=== PATIENT | female | born 1990 | race Caucasian/White ===

== ENCOUNTER → 2016-06-12 03:30 | Observation (INO) ==
--- NOTE | 2016-06-11 22:36 | OB/GYN Progress Note ---
Date of Encounter: 06/11/16 Time of Encounter: 22:35 - Assessment and Plan (1) 34 weeks gestation of Current Visit: Yes Status: Acute Receives care with Dr. Wolf (2) uterine contractions in third trimester, antepartum Current Visit: Yes Status: Acute Nondilated, observation. Hydration, urinalysis pending Subjective - Subjective Principal diagnosis: 34w6d low abd pain Interval history: 25-year-old G 2 P1001 at 34 weeks 6 days to labor and delivery due to lower abdominal discomfort. She thinks she can feel contractions about every 8 minutes. More in her back. She has been driving for about 2 hours from [place] and was at a dance competition all weekend. She reports a mucousy discharge and some pink that she was checked last week where she was told she was 1 cm and 60% by Dr. Wolf. She denies any loss of fluid or vaginal bleeding. She reports the fetus is active. She denies any headache, blurry vision or epigastric pain. She denies any urgency frequency or dysuria. She denies any hematuria. She has a history of a term for which she was socially induced. She denies any complications with this Antepartum ROS: new complaints, movement normal, contractions, no loss of fluid, no vaginal bleeding Objective - Vital Signs Vital Signs: Intake and Output 06/11/16 06/11/16 06/11/16 07:59 15:59 23:59 Other: Weight 72.5 kg Patient Weight 06/11/16 23:59 Weight 72.5 kg - Exam FHR: category 1 FHR comments: 140s baseline Abdomen: Present: soft, gravid. Absent: tenderness Uterus: Absent: tenderness Cervical dilation: CL/50/-1 Cervix effacement: 50 station: -1 - Allied health notes Allied health notes reviewed: nursing
[2016-06-11 22:55] LABS: Bilirubin,Urine Negative (Negative); Blood,Urine Negative (Negative); Clarity,Urine Cloudy (Clear); Color,Urine Yellow (Yellow); Glucose,Urine (UA) Normal (Normal); Ketones,Urine Negative (Negative); Leukocyte Esterase,Urine Negative (Negative); Nitrite,Urine Negative (Negative); Protein,Urine Negative (Neg-Trace); Specific Gravity,Urine 1.012 (1.010-1.025); Urobilinogen,Urine Normal (Normal)
[2016-06-11 22:57] LABS: Bacteria,Urine None Seen per hpf (None-Few); Hyaline Casts,Urine None Seen per lpf (None-Few); RBC,Urine 0-3 per hpf (0-3); Squamous Epithelial Cell,Urine Many per lpf (None-Few); WBC,Urine 0-3 per hpf (0-3)
[~2016-06-12 03:30] MED LIST: *HR* Morphine 10 MG/ML VIAL ONE; *HR* Morphine 10 MG/ML VIAL SQ ONE; *HR* Morphine 2 MG/ML SYRINGE SQ ONE; Ondansetron 4 MG/2 ML VIAL ONE; Ondansetron ODT 4 MG TAB.RAPDIS SL ONE
== END | disposition home or self-care (01) ==
LOC: 1NENULAB
PROVIDERS: ADMIT Obstetrics & Gynecology; ATTEND Obstetrics & Gynecology

== ENCOUNTER → 2016-06-21 15:58 | Observation (INO) ==
--- NOTE | 2016-06-21 13:23 | OB/GYN Progress Note ---
Date of Encounter: 06/21/16 Time of Encounter: 13:18 - Assessment and Plan (1) Uterine contractions during Current Visit: Yes Status: Acute Cervix remains 1 cm long consistent with exam from office yesterday. Will monitor patient for next 2 hours and reevaluate for cervical change Regular diet if desired If no cervical change will discharge home (2) 36 weeks gestation of Current Visit: Yes Status: Acute Subjective - Subjective Interval history: at 36+ 2 reports contractions increased back pain and increased vaginal pressure since 11:30 PM last night patient states she was able to sleep during the night but pain was off and on. Patient states pain has increased a little bit and then more consistent this morning. Was last seen in office by Dr. Wolf yesterday here for evaluation of labor. Patient denies leaking of fluid or vaginal bleeding. Patient endorses good movement. Antepartum ROS: new complaints, movement normal, contractions, no loss of fluid, no vaginal bleeding Objective - Vital Signs Vital Signs: Intake and Output 06/20/16 06/21/16 06/21/16 23:59 07:59 15:59 Other: Weight 76.6 kg Patient Weight 06/21/16 23:59 Weight 76.6 kg - Exam FHR: auscultation normal, category 1 Auscultation: bilateral: normal Abdomen: Present: normal appearance, soft, gravid Uterus: Present: normal Cervical dilation: 1 Cervix effacement: 25 station: -3
[2016-06-21 14:09] LABS: Bilirubin,Urine Negative (Negative); Blood,Urine Negative (Negative); Clarity,Urine Cloudy (Clear); Color,Urine Yellow (Yellow); Glucose,Urine (UA) Normal (Normal); Ketones,Urine 80 mg/dL (Negative); Leukocyte Esterase,Urine Negative (Negative); Nitrite,Urine Negative (Negative); PH,Urine 6.5 pH Units (5.0-8.0); Protein,Urine Negative (Neg-Trace); Specific Gravity,Urine 1.016 (1.010-1.025); Urobilinogen,Urine Normal (Normal)
[2016-06-21 14:13] LABS: Bacteria,Urine Few per hpf (None-Few); Hyaline Casts,Urine None Seen per lpf (None-Few); RBC,Urine 0-3 per hpf (0-3); Squamous Epithelial Cell,Urine Many per lpf (None-Few); WBC,Urine 0-3 per hpf (0-3)
[2016-06-21 14:45] LABS: Amorphous Sediment,Urine Few (Few); Mucus,Urine Moderate (Few)
== END | disposition home or self-care (01) ==
LOC: 1NENULAB
PROVIDERS: ADMIT Advanced Practice Midwife; ATTEND Obstetrics & Gynecology

== ENCOUNTER → 2016-07-04 14:50 | Observation (INO) ==
--- NOTE | 2016-07-04 12:28 | OB/GYN Progress Note ---
Date of Encounter: 07/04/16 Time of Encounter: 12:26 - Assessment and Plan (1) False labor after 37 completed weeks of gestation Current Visit: Yes Status: Acute Pt has been monitored for the last 4 hours with minimal cervical change. 2- 2.5cm. Pt not in labor.Discharged to home. Discussed with Dr. Espinoza. He will see patient in office on Sunday at 845am. Discussed with patient and family. Verbalized understanding. Subjective - Subjective Interval history: pt sent over from MD office for labor eval. Pt states contractions started at 0300 and have been about every 6-[address] espinoza states had cervical change from last in office exam 1 week ago. Pt states good movement, denies leaking of fluid or vaginal bleeding. Pt placed on monitor with occasional contractions noted.After 2 hours patient stated contractions are more intense. . Antepartum ROS: movement normal, contractions, no loss of fluid, no vaginal bleeding Objective - Vital Signs Vital Signs: Intake and Output 07/03/16 07/04/16 07/04/16 23:59 07:59 15:59 Other: Weight 77 kg Patient Weight 07/04/16 23:59 Weight 77 kg - Exam FHR: category 1 Auscultation: bilateral: normal Abdomen: Present: normal appearance, soft, gravid Cervical dilation: 2 Cervix effacement: 60 station: -3
== END | disposition home or self-care (01) ==
LOC: 1NENULAB
PROVIDERS: ADMIT Advanced Practice Midwife; ATTEND Obstetrics & Gynecology

== ENCOUNTER 2016-07-13 08:00 | Inpatient (IN) ==
[2016-07-13] MEDS ORDERED: Ondansetron 4 MG/2 ML VIAL IVP PRN (08:29)
[2016-07-13] MEDS ORDERED: Naloxone 0.4 MG/ML INJ IVP PRN (08:29)
[2016-07-13] MEDS ORDERED: Famotidine 20 MG/2 ML VIAL IVP PRN (08:29)
[2016-07-13] MEDS ORDERED: D5% in Lactated Ringers 1,000 ML IVC SCH (08:30)
[2016-07-13] MEDS ORDERED: miSOPROStol 100 MCG TABLET PO SCH (08:40)
[2016-07-13 08:49] LABS: Basophils % 0.4 %; Eosinophils # 0.1 K/mcL (0.0-0.6); Eosinophils % 1.2 %; Hematocrit 38.5 % (35.3-44.9); Immature Granulocytes % 0.4 % (0-4); Immature Platelets 6.9 % (1.1-6.1); Lymphocytes # 1.7 K/mcL (0.6-4.6); Lymphocytes % 14.9 %; Mean Corpuscular HGB Conc 33.8 g/dL (31.6-35.5); Mean Corpuscular Hemoglobin 29.5 pg (28.0-33.3); Mean Corpuscular Volume 87.5 fL (83.0-100.0); Mean Platelet Volume 10.6 fL (9.4-12.4); Monocytes # 0.8 K/mcL (0.0-1.3); Monocytes % 6.8 %; Neutrophils # 8.7 K/mcL (1.6-8.9); Platelet Count 206 K/mcL (140-400); Red Cell Distribution Width 12.4 % (11.5-14.5); Segmented Neutrophils % 76.3 %
[2016-07-13 09:08] LABS: Alanine Aminotransferase 6 Units/L (0-55); Aspartate Amino Transferase 9 Units/L (5-34); BUN/Creatinine Ratio 12 (6-26); Blood Urea Nitrogen 7 mg/dL (7-20); Lactate Dehydrogenase 141 Units/L (159-327); Uric Acid 2.4 mg/dL (2.6-6.0); eGFR For African Americans > 60 (> 60); eGFR For Non-African Americans > 60 (> 60)
[2016-07-13] MEDS: D5% in 0.45% NACL 1,000 ML IVC SCH ×2 (09:44→16:19)
--- NOTE | 2016-07-13 11:00 | OB/GYN History & Physical ---
Date of Encounter: 07/13/16 Time of Encounter: 10:57 Assessment and Plan (1) 39 weeks gestation of Current visit: Yes Status: Acute (2) Elective induction of labor planned Current visit: Yes Status: Acute Induction of labor with Cytotec, possible Moser placement and AROM Nubain and epidural if desired Regular diet until Pitocin Anticipate History of Present Illness Chief complaint: Here for elective induction of labor HPI: Ms. Boss is a 25 year old female at 39+3 weeks gestation resents to triage for elective induction of labor. Patient reports good movement and occasional contractions, patient denies vaginal bleeding or leaking of fluid. Patient state uncomplicated. Labs: A+, GBS negative, rubella immune, all other serologies negative Past Med Surg Social Fam HX - Past Medical History Source: patient Medical history: no medical history Psychiatric history: no psych history - Social History Smoking Status: Former smoker Smokeless Tobacco Status: No Alcohol use: none Drug use: none - Family History Mother Living Status: Still Living Hx Family Cardiac Disorders: No Hx Family Respiratory Disorders: No Hx Family Cancer: No Hx Family GI Disorders: No Hx Family Genitourinary Disorders: No Hx Family Endocrine Disorder: No Hx Family Musculoskeletal Disorders: No Hx Family Neuromuscular Disorders: No Hx Family Neurologic Disorders: No Hx Family HEENT Disorders: No Hx Family Autoimmune Disorders: No Hx Family Reproductive Disorders: No Hx Family Psychosocial Disorders: No Hx Family Medical Disorders: No Obstetrical History - Pregnancies : 2 Para: 1 Term: 1 : 0 Ab's: 0 Livin Medications and Allergies Daily Combo Pack 1 tab PO DAILY 04/02/16 [History] Allergies No Known Allergies Allergy (Verified 07/13/16 09:06) Review of System OB All systems PM: reviewed and no additional remarkable complaints except as stated Exam - Vital Signs Vital signs: Initial Vital Signs Temp Pulse Resp BP 98.1 F 81 20 151/95 07/13/16 08:56 07/13/16 08:56 07/13/16 08:56 07/13/16 08:56 - Constitutional Constitutional: well developed, well nourished, no acute distress, average body habitus - Neck Neck exam: full ROM - Lungs Respiratory exam: CTAB - Cardiovascular Cardiovascular exam: RRR, +S1, +S2 - Breasts Breast: bilateral: normal - Abdomen Abdomen: Present: bowel sounds normal, gravid, non tender - Extremities Extremities exam: normal capillary refill, normal inspection Deep Tendon Reflex Grade: 2+ Normal - Uterus Uterus exam: Present: normal size (EFW 7#), normal contour Results Result Diagrams: 07/13/16 08:37 07/13/16 08:37 Abnormal lab results WBC 11.3 K/mcL (4.3-11.1) H 07/13/16 08:37 Immature Plt Fraction 6.9 % (1.1-6.1) H 07/13/16 08:37 Uric Acid 2.4 mg/dL (2.6-6.0) L 07/13/16 08:37 Lactate Dehydrogenase 141 Units/L (159-327) L 07/13/16 08:37 All other labs normal. - VTE Reasons for not Prescribing Prophylaxis: Treatment not Indicated - Low risk for VTE
--- NOTE | 2016-07-13 12:59 | OB/GYN Progress Note ---
Date of Encounter: 07/13/16 Time of Encounter: 12:58 - Assessment and Plan (1) 39 weeks gestation of Current Visit: Yes Status: Acute Requests epidural . (2) Elective induction of labor planned Current Visit: Yes Status: Acute Subjective - Subjective Antepartum ROS: movement normal, contractions Objective - Vital Signs Vital Signs: Vital Signs Temp Pulse Resp BP 07/13/16 08:56 98.1 F 81 20 151/95 Intake and Output 07/12/16 07/13/16 07/13/16 23:59 07:59 15:59 Other: Weight 78.7 kg Patient Weight 07/13/16 23:59 Weight 78.7 kg - Exam FHR: category 1 Cervical dilation: 4 Cervix effacement: 60 station: -1 - Labs Labs: Abnormal lab results WBC 11.3 K/mcL (4.3-11.1) H 07/13/16 08:37 Immature Plt Fraction 6.9 % (1.1-6.1) H 07/13/16 08:37 Uric Acid 2.4 mg/dL (2.6-6.0) L 07/13/16 08:37 Lactate Dehydrogenase 141 Units/L (159-327) L 07/13/16 08:37
[2016-07-13] MEDS ORDERED: Epidural Premix (fent/bupiv) 110 ML EP SCH (13:00)
[2016-07-13] MEDS ORDERED: Epidural Premix (fent/bupiv) 110 ML EP ONE (13:01)
[2016-07-13] MEDS ORDERED: Ringers Solution, Lactated 1,000 ML ONE (13:02)
[2016-07-13] MEDS ORDERED: Oxytocin 20 units/ LR 1000 mL 20 UNIT/1,000 ML BAG IVC SCH ×2 (13:45→19:55)
--- NOTE | 2016-07-13 14:00 | Anesthesia Evaluation PreOp ---
Date of Encounter: 07/13/16 Time of Encounter: 13:59 - Past History Planned Operation: CHAO Cardiac History: Denies any Significant Hx Pulmonary History: Denies Any Significant HX LAST MODEL MAKER History: Denies Any Significant HX Other Medical History: Denies Any Significant HX Anesthesia History: No Prior Anesthetic Complications, Past Anesthesia : Yes (39.3) Alcohol Use: none Drug use: none Medications and Allergies Daily Combo Pack 1 tab PO DAILY 04/02/16 [History] Allergies No Known Allergies Allergy (Verified 07/13/16 09:06) - Meds/Allergy Pre-op Review Medications Reviewed: Yes Allergies Reviewed: Yes Beta Blockers on Current Med List: No Anesthesia Results - Labs 07/13/16 08:37 07/13/16 08:37 Anesthesia Exam Height: 5.6 Weight: 78kg NPO (# of Hours): 8 Pain Scale: 6 Pain Scale Used: Numeric (1 - 10) - HEENT Pupil (Motor): Pupils equal Mallampati: II Teeth: Normal Oral Opening: Greater than 3 - LAST MODEL MAKER LOC: Oriented LAST MODEL MAKER Motor: Normal RUE, Normal LUE, Normal RLE, Normal LLE, Normal Face LAST MODEL MAKER Sensory: Normal: RUE, LUE, RLE, LLE, Face - Cardiac Rhythm: Regular Murmur: None JVD: No Carotid Bruit: No - Pulmonary Breath Sounds: bilateral Clear Respiratory Effort: Symmetrical Anesthesia Assess/Plan ASA Score: 2 Modified [place] Scale for Level of Consciousness: Cooperative, oriented, and tranquil Anesthetic Plan: General (plan b), Regional (plan a) Autologous Blood: Yes Monitoring Plan: Standard Monitors
--- NOTE | 2016-07-13 14:02 | Anesthesia Procedures ---
Date of Encounter: 07/13/16 Time of Encounter: 14:00 Procedures: Anesthesia - Epidural/Spinal Patient ID/Chart reviewed: Yes Patient examined: Yes OB Eval: Gestational age: 39.3 OB Eval: : 2 OB Eval: Hx Para: 1 OB Eval: Dilated at (cm): 4 OB Eval: Contractions: Non-stressed pattern Consent Obtained: Yes Supplemental Oxygen: None/Room Air Site Prep: Aseptic Technique, Sterile prep and drape, Povidone-Iodine 1% Patient position: upright Local Anesthetic: Lidocaine 1% Amount of Local Anesthetic used: 3 Touhy Needle Gauge: 18 Touhy Needle Depth (cm): 7 Catheter Depth at Skin (cm): 15 Test Dose (1.5% Lido + Epi): Volume given (mls): 5 Test Dose Result: Negative Loading Dose: Other: 8ml of pharm bag premix solution Loading Dose Administered: Thru Catheter Infusion Med: 0.125% Bupivacaine w/ 2 mcg/ml Fentanyl Infusion Rate (mls/hr): 15 ([id number]) Catheter Secured in Place: Tegaderm, Tape Interspace Used: L3-L4 Loss of Resistance (MAE): Yes Blood: No CSF: No Paresthesia: No Procedure: pt tolerated procedure well. no complications. vss. fhr stable. [pump started at 1348 137/83 hr 78 144/85 hr 85 fhr 155
--- NOTE | 2016-07-13 14:31 | OB Labor Progress Note ---
Date of Encounter: 07/13/16 Time of Encounter: 14:29 Labor Progress Note - Subjective Subjective: Pt resting comfortable in bed at this time. - Cervix Cervix: 4/80/-1 - Heart Tones Heart Tones: 130/moderate/accels/no decels - Interventions Interventions: AROM/ thick meconium - Plan Plan: start pitocin per policy. Anticipate
--- NOTE | 2016-07-13 18:25 | OB/GYN Procedure Note ---
Delivery - Delivery Date: 07/13/16 Provider: Milo Wolf (juan c) Intrapartum events: none Delivery induction: misoprostol Delivery augmentation: rupture of membranes, pitocin Delivery monitor: external FHT, external uterine Anesthesia: epidural Estimated Blood Loss: 200 - (s) A Infant Delivery Date: 07/13/16 Infant Delivery Time: 18:07 Presentation: vertex Position: OA Route of delivery: Gender: Female Viability: Viable Pounds: 7 Ounces: 6 at 1 minute: 8 at 5 mins: 9 Shoulder Dystocia: not encountered Placenta: spontaneous Cord: delivered through nuchal - Repair Episiotomy: none Laceration Description: None - Complications Delivery complications: none Delivery comments: Patient delivered spontaneously over an intact perineum from occiput anterior position a live female weighing 7 lbs. 6 oz. with Apgars of 8 and 9. Blood loss was 200 mL. Delivery time was 1807. Placenta delivered spontaneously at 1812.
[2016-07-13] MEDS ORDERED: Benzocaine/Menthol 56 GM AEROSOL SPRAY TP PRN (19:55)
[2016-07-13] MEDS ORDERED: Lanolin 28 GM TUBE TP PRN (19:55)
[2016-07-13] MEDS ORDERED: Acetaminophen 325 MG TABLET PO PRN (19:55)
[2016-07-13] MEDS ORDERED: Ibuprofen 600 MG TABLET PO PRN (19:55)
[2016-07-14] MEDS ORDERED: Prenatal Vit/FA 1 EACH TABLET PO SCH (09:00)
[2016-07-14 09:08] VITALS: BP 114/73
--- NOTE | 2016-07-14 09:58 | Discharge Summary ---
Date of Encounter: 07/14/16 Time of Encounter: 09:56 - Discharge Diagnosis (1) Vaginal delivery Priority: Primary Status: Acute Comments: Pt meeting milestones. (2) Mother currently breast-feeding Priority: Secondary Status: Acute - Discharge Medications Prescriptions: Ibuprofen [Motrin] 600 mg PO Q6HR PRN #60 tablet PRN Reason: Cramping Docusate [Colace] 100 mg PO BID #60 capsule Home Medications: Daily Combo Pack 1 tab PO DAILY 04/02/16 [History] Benzocaine/Menthol [place] [Dermoplast [place]] 1 appl TP QID PRN #0 aerosol [Rx] Breast Pump [BREAST PUMP] 1 each .ROUTE AD #1 each 07/14/16 [Rx] Docusate [Colace] 100 mg PO BID #60 capsule 07/14/16 [Rx] Ibuprofen [Motrin] 600 mg PO Q6HR PRN #60 tablet 07/14/16 [Rx] Lanolin 1 appl TP QID PRN #0 tube 07/14/16 [Rx] Allergies/Adverse Reactions: Allergies No Known Allergies Allergy (Verified 07/13/16 09:06) Data Procedures and tests throughout hospitalization: Laboratory Tests 07/13/16 07/13/16 08:37 08:37 WBC 11.3 H RBC 4.40 Hgb 13.0 Hct 38.5 MCV 87.5 MCH 29.5 MCHC 33.8 RDW 12.4 Plt Count 206 MPV 10.6 Immature Gran % 0.4 Seg Neutrophils % 76.3 Lymphocytes % 14.9 Monocytes % 6.8 Eosinophils % 1.2 Basophils % 0.4 Neutrophils # 8.7 Lymphocytes # 1.7 Monocytes # 0.8 Eosinophils # 0.1 Basophils # 0.0 Immature Plt Fraction 6.9 H BUN 7 Creatinine 0.58 Est GFR ( Amer) > 60 Est GFR (Non-Af Amer) > 60 BUN/Creatinine Ratio 12 Uric Acid 2.4 L AST 9 ALT 6 Lactate Dehydrogenase 141 L Date of admission: 07/13/16 08:09 Primary care physician: PCP NO Consults: 07/13/16 19:55 Consult to Carpenter Assistant [CONS] Routine Comment: Vaginal delivery, consult needed Discharging clinician: Bhumi Lamb Anticipated date of discharge: 07/14/16 - Patient Status Disposition: Home, Self-Care Condition: Good Functional capacity at discharge: independent ambulation Overall status at discharge: patient is progressing back to baseline - Discharge Instructions Follow Up With: NO,PCP [Primary Care Provider] - Milo Wolf MD [Partnered Physician] - - Diet and Activity Activity: increase activity as tolerated Diet: regular diet Hospital Course Reason for admission: induction of labor Delivery: Episiotomy: none Laceration: none Other procedures: none complications: none Discharge diagnosis: IUP at term delivered baby: female Hospital course: - Delivery Date: 07/13/16 Provider: Milo Wolfley) Intrapartum events: none Delivery induction: misoprostol Delivery augmentation: rupture of membranes, pitocin Delivery monitor: external FHT, external uterine Anesthesia: epidural Estimated Blood Loss: 200 - Infant (s) A Delivery Date: 07/13/16 Infant Delivery Time: 18:07 Presentation: vertex Position: OA Route of delivery: Gender: Female Viability: Viable Pounds: 7 Ounces: 6 at 1 minute: 8 at 5 mins: 9 Shoulder Dystocia: not encountered Placenta: spontaneous Cord: delivered through nuchal - Repair Episiotomy: none Laceration Description: None - Complications Delivery complications: none Time Attestation: Total time spent providing and/or coordinating discharge services: Time Spent: Less than 30 minutes Exam - Constitutional Vitals: Temp Pulse Resp BP Pulse Ox 98.0 F 76 16 114/73 97 07/14/16 08:05 07/14/16 08:05 07/14/16 08:05 07/14/16 08:05 07/14/16 08:05 General appearance IM: A&O X 3, pleasant, no acute distress - Respiratory Respiratory exam: Present: CTAB - Cardiovascular Cardiovascular exam IM: Present: RRR, +S1, +S2 - GI/Abdominal GI/Abdominal exam IM: soft - Rectal Rectal exam: deferred - Uterine Tone: Firm Uterus Position: 1 Finger Below Umbilicus - Extremities Exam Extremities exam IM: Present: normal inspection - Neurological Exam Neurological exam: normal gait, oriented X3 - Psychiatric Additional comments: reports good mood
== END 2016-07-14 20:00 | disposition home or self-care (01) | DRG 560 ==
LOC: 1NENULAB 08:09 → 1NENUOBS 21:07
PROVIDERS: ADMIT Obstetrics & Gynecology; ATTEND Obstetrics & Gynecology

== ENCOUNTER → 2017-11-27 15:32 | Observation (INO) ==
[2017-11-27 12:59] LABS: Bilirubin,Urine Negative (Negative); Blood,Urine Negative (Negative); Color,Urine Yellow (Yellow); Glucose,Urine (UA) Normal (Normal); Ketones,Urine Negative (Negative); Leukocyte Esterase,Urine Trace (Negative); Nitrite,Urine Negative (Negative); PH,Urine 7.5 pH Units (5.0-8.0); Protein,Urine Negative (Neg-Trace); Specific Gravity,Urine 1.009 (1.010-1.025); Urobilinogen,Urine Normal (Normal)
[2017-11-27 13:03] LABS: Bacteria,Urine Moderate per hpf (None-Few); Hyaline Casts,Urine Few per lpf (None-Few); Squamous Epithelial Cell,Urine Many per lpf (None-Few); WBC,Urine 0-3 per hpf (0-3)
[2017-11-27 13:09] LABS: Clarity,Urine Slightly Hazy (Clear)
[2017-11-27 13:23] LABS: Amphetamine Screen,Urine Negative ng/mL (Cutoff=1000); Barbiturate Screen,Urine Negative ng/mL (Cutoff=200); Benzodiazepines Screen,Urine Negative ng/mL (Cutoff=200); Cannabinoid Screen,Urine Negative ng/mL (Cutoff = 50); Cocaine Screen,Urine Negative ng/mL (Cutoff= 300); Opiate Screen,Urine Negative ng/mL (Cutoff=300); Phencyclidine Screen,Urine Negative ng/mL (Cutoff=25)
--- NOTE | 2017-11-27 15:30 | OB/GYN Progress Note ---
Date of Encounter: 11/27/17 Time of Encounter: 15:23 - Assessment and Plan (1) 36 weeks gestation of Current Visit: No Status: Acute (2) uterine contractions in third trimester, antepartum Current Visit: No Status: Acute Patient ambulated for ~3 hours, contractions irregular, without change in dilation or effacement. Discharge home with precautions. Subjective - Subjective Interval history: 27 year-old presenting at 36w2d from office with c/o contractions. She denies LOF or VB. Good FM. No other complaints. Antepartum ROS: movement normal, contractions, no loss of fluid, no vaginal bleeding Objective - Vital Signs Vital Signs: Intake and Output 11/26/17 11/27/17 11/27/17 23:59 07:59 15:59 Other: Weight 78.3 kg Patient Weight 11/27/17 23:59 Weight 78.3 kg - Exam FHR: category 1 FHR comments: FHR 130, reactive Auscultation: bilateral: normal Abdomen: Present: normal appearance, soft, gravid Uterus: Present: normal. Absent: tenderness Cervical dilation: 2 Cervix effacement: 80% station: -2 - Labs Labs: Abnormal lab results Ur Specific [place] 1.009 (1.010-1.025) L 11/27/17 12:25 Ur Leukocyte Esterase Trace (Negative) H 11/27/17 12:25 Urine Microscopic RBC 3-5 per hpf (0-3) H 11/27/17 12:25 Ur Squamous Epith Cells Many per lpf (None-Few) H 11/27/17 12:25 Urine Bacteria Moderate per hpf (None-Few) H 11/27/17 12:25 Ur Culture Indicated? NO. (NO) A 11/27/17 12:25
== END | disposition home or self-care (01) ==
LOC: 1NENULAB
PROVIDERS: ADMIT Registered Nurse; ATTEND Registered Nurse

== ENCOUNTER 2017-12-15 17:29 | Inpatient (IN) ==
[~2017-12-15 17:29] MED LIST changes: -*HR* Morphine 10 MG/ML VIAL ONE; -*HR* Morphine 10 MG/ML VIAL SQ ONE; -*HR* Morphine 2 MG/ML SYRINGE SQ ONE; +*HR* Nalbuphine 10 MG/ML AMPUL IVP PRN; +Famotidine 20 MG/2 ML VIAL IVP PRN; +Metoclopramide 10 MG/2 ML VIAL IVP PRN; +Naloxone 0.4 MG/ML INJ IVP PRN; +Ondansetron 4 MG/2 ML VIAL IVP PRN; -Ondansetron 4 MG/2 ML VIAL ONE; -Ondansetron ODT 4 MG TAB.RAPDIS SL ONE; +Ringers Solution, Lactated 1,000 ML IVC SCH; +Ringers Solution, Lactated 1,000 ML ONE
[2017-12-15 17:43] LABS: Basophils % 0.3 %; Eosinophils # 0.1 K/mcL (0.0-0.6); Eosinophils % 0.8 %; Hematocrit 38.6 % (35.3-44.9); Hemoglobin 12.7 g/dL (11.5-15.4); Immature Granulocytes % 0.5 % (0-4); Lymphocytes # 1.8 K/mcL (0.6-4.6); Lymphocytes % 16.7 %; Mean Corpuscular HGB Conc 32.9 g/dL (31.6-35.5); Mean Corpuscular Hemoglobin 29.1 pg (28.0-33.3); Mean Corpuscular Volume 88.5 fL (83.0-100.0); Mean Platelet Volume 10.7 fL (9.4-12.4); Monocytes # 0.6 K/mcL (0.0-1.3); Monocytes % 5.5 %; Platelet Count 196 K/mcL (140-400); Red Blood Count 4.36 M/mcL (3.82-4.97); Red Cell Distribution Width 12.7 % (11.5-14.5); Segmented Neutrophils % 76.2 %
[2017-12-15 17:54] LABS: Protein/Creatinine Ratio,Urine 0.36 mg/mg (0.00-0.20)
[2017-12-15 17:55] LABS: Amphetamine Screen,Urine Negative ng/mL (Cutoff=1000); Barbiturate Screen,Urine Negative ng/mL (Cutoff=200); Benzodiazepines Screen,Urine Negative ng/mL (Cutoff=200); Cannabinoid Screen,Urine Negative ng/mL (Cutoff = 50); Cocaine Screen,Urine Negative ng/mL (Cutoff= 300); Opiate Screen,Urine Negative ng/mL (Cutoff=300); Phencyclidine Screen,Urine Negative ng/mL (Cutoff=25)
[2017-12-15 18:01] LABS: Alanine Aminotransferase 7 Units/L (7-52); Aspartate Amino Transferase 10 Units/L (13-39); BUN/Creatinine Ratio 30 (6-26); Blood Urea Nitrogen 12 mg/dL (6-20); Lactate Dehydrogenase 142 Units/L (140-271); eGFR For Non-African Americans > 60 (> 60)
--- NOTE | 2017-12-15 18:26 | OB/GYN History & Physical ---
Date of Encounter: 12/15/17 Time of Encounter: 18:24 Assessment and Plan (1) 38 weeks gestation of Current visit: Yes Status: Acute (2) SROM (spontaneous rupture of membranes) Current visit: Yes Status: Acute Admit to labor and delivery Nubain and epidural as desired Draw PIH labs due to elevated blood pressures Draw hepatitis B GBS negative Anticipate History of Present Illness Chief complaint: SROM HPI: Ms. Underwood is a 27 year old female 38+6 weeks gestation presents to triage with complaints of rupture at 1550 this evening, and now occasional contractions. Reports good movement, denies vaginal bleeding. Denies headache, visual changes, right upper quadrant pain. Uncomplicated course with care with Dr. Wolf Labs: A+, rubella immune, GBS negative, all other serologies negative, awaiting hepatitis B results. 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 - Social History Smoking Status: Former smoker Smokeless Tobacco Status: No Alcohol use: none Drug use: none - Family History Mother Living Status: Still Living Hx Family Cardiac Disorders: No Hx Family Respiratory Disorders: No Hx Family Cancer: No Hx Family GI Disorders: No Hx Family Genitourinary Disorders: No Hx Family Endocrine Disorder: No Hx Family Neuromuscular Disorders: No Hx Family Neurologic Disorders: No Hx Family HEENT Disorders: No Hx Family Autoimmune Disorders: No Hx Family Reproductive Disorders: Yes (endometriosis) Hx Family Psychosocial Disorders: No Hx Family Medical Disorders: Yes (jeff) Obstetrical History - Pregnancies : 3 Para: 2 Term: 2 : 0 Ab's: 0 Livin Medications and Allergies Daily Combo Pack 1 tab PO DAILY 04/02/16 [History] 3 Allergy/AdvReac Type Severity Reaction Status Date / Time No Known Allergies Allergy Verified 07/13/16 09:06 Exam - Constitutional Constitutional: well developed, well nourished, no acute distress, average body habitus - Neck Neck exam: full ROM - Lungs Respiratory exam: CTAB - Cardiovascular Cardiovascular exam: RRR - Abdomen Abdomen: Present: gravid, non tender - Extremities Extremities exam: normal capillary refill, normal inspection - Cervix Dilation: 3 (per RN) Effacement: 70 Station: -2 Results Result Diagrams: 10/06/18 17:15 12/15/17 17:28 Abnormal lab results Creatinine 0.40 mg/dL (0.60-1.20) L 12/15/17 17:28 BUN/Creatinine Ratio 30 (6-26) H 12/15/17 17:28 AST 10 Units/L (13-39) L 12/15/17 17:28 Protein/Creatinin Ratio 0.36 mg/mg (0.00-0.20) H 12/15/17 17:20 Urine Total Protein 25 mg/dL (1-14) H 12/15/17 17:20 All other labs normal. - VTE Reasons for not Prescribing Prophylaxis: Treatment not Indicated - Low risk for VTE
[2017-12-15] MEDS ORDERED: Ondansetron 4 MG/2 ML VIAL IVP PRN (18:27)
[2017-12-15] MEDS ORDERED: *HR* FentaNYL (PF) 100 MCG/2 ML VIAL EP ONE (18:27)
[2017-12-15] MEDS ORDERED: Bupivacaine-MPF 0.25% 10 ML VIAL EP ONE (18:27)
[2017-12-15] MEDS ORDERED: Naloxone 0.4 MG/ML INJ IVP PRN (18:27)
[2017-12-15] MEDS ORDERED: *HR* Ropivacaine/PF 0.2% 20 ML VIAL EP ONE (18:27)
[2017-12-15] MEDS ORDERED: EPHEDrine 50 MG/ML VIAL IVP PRN (18:27)
[2017-12-15] MEDS ORDERED: Epidural Premix (fent/bupiv) 110 ML EP SCH (18:30)
--- NOTE | 2017-12-15 18:30 | Anesthesia Evaluation PreOp ---
Date of Encounter: 12/15/17 Time of Encounter: 18:25 - Past History Planned Operation: CHAO Cardiac History: Denies any Significant Hx Pulmonary History: Denies Any Significant HX SUPPLY CHAIN LOGISTICS MANAGER History: Denies Any Significant HX Other Medical History: Denies Any Significant HX Anesthesia History: No Prior Anesthetic Complications, Past Anesthesia (Tumor left wrist removal) : Yes Alcohol Use: none Drug use: none Medications and Allergies Daily Combo Pack 1 tab PO DAILY 04/02/16 [History] 3 Allergy/AdvReac Type Severity Reaction Status Date / Time No Known Allergies Allergy Verified 07/13/16 09:06 - Meds/Allergy Pre-op Review Medications Reviewed: Yes Allergies Reviewed: Yes Beta Blockers on Current Med List: No Anesthesia Results - Labs 12/15/17 17:15 12/15/17 17:28 Anesthesia Exam BP 148/96 P 85 16 T 98.8 Height: 5'6" Weight: 80.4kg NPO (# of Hours): 4 Pain Scale: 3 Pain Scale Used: Numeric (1 - 10) - HEENT Pupil (Motor): Pupils equal Mallampati: II Teeth: Normal Oral Opening: Greater than 3 - SUPPLY CHAIN LOGISTICS MANAGER LOC: Oriented SUPPLY CHAIN LOGISTICS MANAGER Motor: Normal RUE, Normal LUE, Normal RLE, Normal LLE, Normal Face SUPPLY CHAIN LOGISTICS MANAGER Sensory: Normal: RUE, LUE, RLE, LLE, Face - Cardiac Rhythm: Regular Murmur: None JVD: No Carotid Bruit: No - Pulmonary Breath Sounds: bilateral Clear Respiratory Effort: Symmetrical Anesthesia Assess/Plan ASA Score: 2 Modified [place] Scale for Level of Consciousness: Cooperative, oriented, and tranquil Anesthetic Plan: Regional Autologous Blood: No Monitoring Plan: Standard Monitors Recovery Plan: Other
--- NOTE | 2017-12-15 19:49 | Anesthesia Procedures ---
Date of Encounter: 12/15/17 Time of Encounter: 19:10 Procedures: Anesthesia - Epidural/Spinal Patient ID/Chart reviewed: Yes Patient examined: Yes OB Eval: Gestational age: 38.6 OB Eval: : 3 OB Eval: Hx Para: 2 OB Eval: Dilated at (cm): 4 OB Eval: Contractions: Non-stressed pattern Consent Obtained: Yes Supplemental Oxygen: None/Room Air Site Prep: Aseptic Technique, Sterile prep and drape, Povidone-Iodine 1% Patient position: upright Local Anesthetic: Lidocaine 1% Amount of Local Anesthetic used: 3 Touhy Needle Gauge: 18 Touhy Needle Depth (cm): 5 Catheter Depth at Skin (cm): 15 Test Dose (1.5% Lido + Epi): Volume given (mls): 3 Test Dose Result: Negative Loading Dose: Fentanyl (mcg): 100 Loading Dose: Other: Ropivicaine 0.2% 8ml Loading Dose Administered: Thru Catheter Infusion Med: 0.125% Bupivacaine w/ 2 mcg/ml Fentanyl Infusion Rate (mls/hr): 15 Interspace Used: L3-L4 Loss of Resistance (MAE): Yes Blood: No CSF: No Paresthesia: No Procedure: CHAO placed 1st pass in upright position without any immediate noted complications. VSS and FHT stable throughout. Vitals + FHT's: 1910 BP 158/97 P 92 R 18 1934 BP 143/76 P 112 R 16 FHT 150s
[2017-12-15] MEDS ORDERED: *HR* Ropivacaine/PF 0.2% 20 ML VIAL ONE (19:52)
[2017-12-15] MEDS ORDERED: *HR* FentaNYL (PF) 100 MCG/2 ML VIAL ONE (19:52)
[2017-12-15] MEDS ORDERED: Lidocaine -MPF 2% 5 ML VIAL ONE (19:52)
[2017-12-15] MEDS ORDERED: Oxytocin 20 units/ LR 1000 mL 20 UNIT/1,000 ML BAG IVC ONE (23:08)
--- NOTE | 2017-12-15 23:54 | OB/GYN Procedure Note ---
Delivery - Delivery Date: 12/15/17 Provider: Milo Wolf Intrapartum events: none Delivery induction: none Delivery monitor: external FHT, external uterine Anesthesia: epidural Quantitated Blood Loss: 50 - (s) A Delivery Date: 12/15/17 Infant Delivery Time: 23:24 Presentation: vertex Position: JONAH Route of delivery: Gender: Female Viability: Viable Pounds: 7 Ounces: 4 at 1 minute: 8 at 5 mins: 9 Shoulder Dystocia: not encountered Specimens collected: cord blood Placenta: spontaneous - Repair Episiotomy: none Laceration Description: None - Complications Delivery complications: none - Disposition Mom disposition: stable in LDR Sunspot disposition: stable in LDR - Comments Comments: Patient progressed to complete and on the perineum. Delivered a live female weighing 7 lbs. 4 oz. Apgars 8 and 9. Delivery time was 2324. Placenta was 2331. Asthma blood loss was 50 mL. Right occiput anterior was a position. No lacerations were encountered.
[2017-12-16] MEDS ORDERED: Acetaminophen 325 MG TABLET PO PRN (02:20)
[2017-12-16] MEDS ORDERED: Measles/Mumps/Rubella Vacc 0.5 ML VIAL SQ PRN (02:20)
[2017-12-16] MEDS ORDERED: Oxytocin 20 units/ LR 1000 mL 20 UNIT/1,000 ML BAG IVC SCH (02:20)
[2017-12-16] MEDS ORDERED: Sennosides 8.6 MG TABLET PO PRN (02:20)
[2017-12-16 06:58] LABS: Basophils % 0.3 %; Eosinophils # 0.1 K/mcL (0.0-0.6); Eosinophils % 0.6 %; Hematocrit 35.1 % (35.3-44.9); Hemoglobin 11.6 g/dL (11.5-15.4); Immature Granulocytes % 0.6 % (0-4); Lymphocytes # 1.8 K/mcL (0.6-4.6); Lymphocytes % 16.9 %; Mean Corpuscular Hemoglobin 29.4 pg (28.0-33.3); Mean Corpuscular Volume 88.9 fL (83.0-100.0); Mean Platelet Volume 10.4 fL (9.4-12.4); Monocytes # 0.8 K/mcL (0.0-1.3); Monocytes % 7.2 %; Platelet Count 146 K/mcL (140-400); Red Blood Count 3.95 M/mcL (3.82-4.97); Red Cell Distribution Width 12.9 % (11.5-14.5); Segmented Neutrophils % 74.4 %
[2017-12-16] MEDS ORDERED: [UNRECOGNIZED DRUG - OTHER] PO SCH (09:00)
[2017-12-16] MEDS: Prenatal Vit/FA 1 EACH TABLET PO SCH (09:07)
[2017-12-16] MEDS: Ibuprofen 600 MG TABLET PO PRN (09:08)
--- NOTE | 2017-12-16 09:11 | OB/GYN Progress Note ---
Date of Encounter: 12/16/17 Time of Encounter: 09:09 - Assessment and Plan (1) Status post normal vaginal delivery Current Visit: Yes Status: Acute The patient is stable and afebrile in a.m. was discharged home Subjective - Subjective Interval history: Patient is doing well this morning denies headaches blurred vision scotoma no lightheadedness. Patient's blood pressures have been stable through the night bleeding is minimal to no cramping. Because she delivered so late did advise we will watch her through the day is stable and morning will discharge home. The blood pressure starts to go up did inform her Will start her on some labetalol. Patient reports: appetite normal, pain well controlled, ambulating normally Shirley: doing well Objective - Latest Vital Signs Latest vital signs: Vital Signs Temp Pulse Resp BP Pulse Ox 12/16/17 08:20 98.1 F 84 16 124/85 97 12/16/17 04:30 98.2 F 90 16 122/77 96 12/16/17 03:20 98.2 F 96 16 121/69 96 12/16/17 02:15 98.1 F 92 15 137/83 92 Intake and Output 12/15/17 12/16/17 12/16/17 23:59 07:59 15:59 Output Total 1999 Balance -1999 Output: Urine 1999 Other: Stool Characteristics Normal for Patient Weight 80.467 kg 79 kg Patient Weight 12/16/17 23:59 Weight 79 kg - Exam Lungs: bilateral: normal Chest: Normal S1, Normal S2 Extremities: Present: normal Abdomen: Present: normal appearance Uterus: Present: normal, firm Uterus Position: At Umbilicus - Labs Labs: Laboratory Results - last 24 hr 12/15/17 12/15/17 12/15/17 17:15 17:20 17:20 WBC 10.5 RBC 4.36 Hgb 12.7 Hct 38.6 MCV 88.5 MCH 29.1 MCHC 32.9 RDW 12.7 Plt Count 196 MPV 10.7 Immature Gran % 0.5 Seg Neutrophils % 76.2 Lymphocytes % 16.7 Monocytes % 5.5 Eosinophils % 0.8 Basophils % 0.3 Neutrophils # 8.0 Lymphocytes # 1.8 Monocytes # 0.6 Eosinophils # 0.1 Basophils # 0.0 BUN Creatinine Est GFR ( Amer) Est GFR (Non-Af Amer) BUN/Creatinine Ratio Uric Acid AST ALT Lactate Dehydrogenase Urine Creatinine 70 Protein/Creatinin Ratio 0.36 H Urine Total Protein 25 H Urine Opiates Screen Negative Ur Barbiturates Screen Negative Ur Phencyclidine Scrn Negative Ur Amphetamines Screen Negative U Benzodiazepines Scrn Negative Urine Cocaine Screen Negative U Marijuana (THC) Screen Negative Ur Drug Screen Interp See Below Hep Bs Antigen 12/15/17 12/15/17 12/16/17 17:28 21:01 06:45 WBC 10.8 RBC 3.95 Hgb 11.6 Hct 35.1 L MCV 88.9 MCH 29.4 MCHC 33.0 RDW 12.9 Plt Count 146 MPV 10.4 Immature Gran % 0.6 Seg Neutrophils % 74.4 Lymphocytes % 16.9 Monocytes % 7.2 Eosinophils % 0.6 Basophils % 0.3 Neutrophils # 8.0 Lymphocytes # 1.8 Monocytes # 0.8 Eosinophils # 0.1 Basophils # 0.0 BUN 12 Creatinine 0.40 L Est GFR ( Amer) > 60 Est GFR (Non-Af Amer) > 60 BUN/Creatinine Ratio 30 H Uric Acid 3.0 AST 10 L ALT 7 Lactate Dehydrogenase 142 Urine Creatinine Protein/Creatinin Ratio Urine Total Protein Urine Opiates Screen Ur Barbiturates Screen Ur Phencyclidine Scrn Ur Amphetamines Screen U Benzodiazepines Scrn Urine Cocaine Screen U Marijuana (THC) Screen Ur Drug Screen Interp Hep Bs Antigen Nonreactive
[2017-12-17] MEDS: Ibuprofen 600 MG TABLET PO PRN (06:43)
[2017-12-17] MEDS: Prenatal Vit/FA 1 EACH TABLET PO SCH (09:08)
[2017-12-17 09:24] VITALS: BP 120/76
--- NOTE | 2017-12-17 11:57 | Discharge Summary ---
Date of Encounter: 12/17/17 Time of Encounter: 11:54 - Discharge Diagnosis (1) Breast feeding status of mother Priority: Secondary Status: Acute Comments: resources provided (2) Vaginal delivery Priority: Primary Status: Acute Comments: Pain well controlled with by mouth pain meds Tolerating regular diet Voiding independently Lochia light Passing flatus, no BM yet Vital signs stable Ambulating independently Discharge home today - Discharge Medications Prescriptions: Ibuprofen [Motrin] 600 mg PO Q6HR PRN #30 tablet PRN Reason: Cramping Docusate [Colace] 100 mg PO BID #30 capsule Home Medications: Daily Combo Pack 1 tab PO DAILY 04/02/16 [History] Acetaminophen [Tylenol] 650 mg PO Q6HR PRN tablet 12/17/17 [Rx] Docusate [Colace] 100 mg PO BID #30 capsule 12/17/17 [Rx] Ibuprofen [Motrin] 600 mg PO Q6HR PRN #30 tablet 12/17/17 [Rx] Allergies/Adverse Reactions: 3 Allergy/AdvReac Type Severity Reaction Status Date / Time No Known Allergies Allergy Verified 07/13/16 09:06 Data Procedures and tests throughout hospitalization: Laboratory Tests 12/15/17 12/15/17 12/15/17 17:15 17:20 17:20 WBC 10.5 RBC 4.36 Hgb 12.7 Hct 38.6 MCV 88.5 MCH 29.1 MCHC 32.9 RDW 12.7 Plt Count 196 MPV 10.7 Immature Gran % 0.5 Seg Neutrophils % 76.2 Lymphocytes % 16.7 Monocytes % 5.5 Eosinophils % 0.8 Basophils % 0.3 Neutrophils # 8.0 Lymphocytes # 1.8 Monocytes # 0.6 Eosinophils # 0.1 Basophils # 0.0 BUN Creatinine Est GFR ( Amer) Est GFR (Non-Af Amer) BUN/Creatinine Ratio Uric Acid AST ALT Lactate Dehydrogenase Urine Creatinine 70 Protein/Creatinin Ratio 0.36 H Urine Total Protein 25 H Urine Opiates Screen Negative Ur Barbiturates Screen Negative Ur Phencyclidine Scrn Negative Ur Amphetamines Screen Negative U Benzodiazepines Scrn Negative Urine Cocaine Screen Negative U Marijuana (THC) Screen Negative Ur Drug Screen Interp See Below Hep Bs Antigen 12/15/17 12/15/17 12/16/17 17:28 21:01 06:45 WBC 10.8 RBC 3.95 Hgb 11.6 Hct 35.1 L MCV 88.9 MCH 29.4 MCHC 33.0 RDW 12.9 Plt Count 146 MPV 10.4 Immature Gran % 0.6 Seg Neutrophils % 74.4 Lymphocytes % 16.9 Monocytes % 7.2 Eosinophils % 0.6 Basophils % 0.3 Neutrophils # 8.0 Lymphocytes # 1.8 Monocytes # 0.8 Eosinophils # 0.1 Basophils # 0.0 BUN 12 Creatinine 0.40 L Est GFR ( Amer) > 60 Est GFR (Non-Af Amer) > 60 BUN/Creatinine Ratio 30 H Uric Acid 3.0 AST 10 L ALT 7 Lactate Dehydrogenase 142 Urine Creatinine Protein/Creatinin Ratio Urine Total Protein Urine Opiates Screen Ur Barbiturates Screen Ur Phencyclidine Scrn Ur Amphetamines Screen U Benzodiazepines Scrn Urine Cocaine Screen U Marijuana (THC) Screen Ur Drug Screen Interp Hep Bs Antigen Nonreactive Date of admission: 12/15/17 17:29 Primary care physician: PCP NONE Consults: 12/16/17 02:20 Consult to [employer] [CONS] Routine Comment: Vaginal delivery, consult needed Discharging clinician: Anjelica Mckee Anticipated date of discharge: 12/17/17 - Patient Status Disposition: Home, Self-Care Condition: Good Functional capacity at discharge: independent ambulation Overall status at discharge: patient is progressing back to baseline - Discharge Instructions Follow Up With: NONE,PCP [Primary Care Provider] - Milo Wolf MD [Partnered Physician] - - Diet and Activity Activity: increase activity as tolerated Diet: regular diet Hospital Course Procedures: Reason for admission: IUP at term, ROM Delivery: Episiotomy: none Laceration: none complications: none Discharge diagnosis: IUP at term delivered Dresher baby: female Time Attestation: Total time spent providing and/or coordinating discharge services: Time Spent: Less than 30 minutes Exam - Constitutional Vitals: Temp Pulse Resp BP Pulse Ox 98.1 F 102 14 120/76 97 12/17/17 09:22 12/17/17 09:22 12/17/17 09:22 12/17/17 09:22 12/17/17 09:22 General appearance IM: A&O X 3 - Respiratory Respiratory exam: Present: CTAB - Cardiovascular Cardiovascular exam IM: Present: RRR, +S1, +S2 - GI/Abdominal GI/Abdominal exam IM: normal bowel sounds, no peritoneal signs - Rectal Rectal exam: deferred - Uterine Tone: Firm Uterus Position: At Umbilicus, Midline - Extremities Exam Extremities exam IM: Present: normal capillary refill, normal inspection, radial pulses palpable and symmetrical - Neurological Exam Neurological exam: alert, CN II-XII intact, normal gait, oriented X3, reflexes normal, no focal deficits, strengths equal and symetr throughout - Psychiatric Additional comments: Signs and symptoms of depression discussed with patient and family and both verbalize understanding of when to seek help.
[2017-12-17] MEDS ORDERED: FLU VAC QV 2018(18YR UP)RCM/PF 0.5 ML SYRINGE IM ONE (12:14)
== END 2017-12-17 12:53 | disposition home or self-care (01) | DRG 807 ==
LOC: 1NENULAB → 1NENUOBS 12-16 02:19
PROVIDERS: ADMIT Obstetrics & Gynecology; ATTEND Obstetrics & Gynecology